=== PATIENT | male | born 1950 | race Caucasian/White ===

== ENCOUNTER → 2019-02-06 | Outpatient (CLI) | payer MEDICARE, BC ==
[~2019-02-06] MED LIST: ADVIL200 MG PO; ASPIRIN E.C. 8181 MG PO; CIPRO 500MG TA500 MG PO; NO HOME MEDICATIONS; TYLENOL 500MG500 MG PO
== END ==
LOC: COL.RAD 12:48
DX: S00.93XA Contusion of unspecified part of head, initial encounter (principal)

== ENCOUNTER 2021-07-03 23:31 | Emergency (ER) | payer MEDICARE, BC ==
[~2021-07-03] VITALS: Ht 193 cm; Wt 109.5 kg
[2021-07-04 00:57] LABS: BASO # 0.1 (0.0-0.2); EOS # 0.3 (0.0-0.7); EOS % 4.6 % (0-4.0); GRAN # 3.7 (1.4-6.5); GRAN % 60.9 % (42.2-75.2); HEMATOCRIT 45.6 % (42.0-52.0); HEMOGLOBIN 15.5 g/dl (13.5-18.0); LYMPH # 1.4 (1.2-3.4); LYMPH % 22.5 % (20.0-51.0); MEAN CELL VOLUME 93 fl (80.0-100.0); MEAN CORPUSCULAR HEMOGLOBIN 32 pg (27.0-31.0); MEAN CORPUSCULAR HGB CONC 34 g/dl (33.0-37.0); MEAN PLATELET VOLUME 11.9 fl (7.4-10.4); MONO # 0.6 (0.1-0.6); MONO % 10.5 % (1.7-9.3); PLATELET COUNT 207 K/mm3 (130-400); RED BLOOD COUNT 4.89 M/mm3 (4.20-5.60); REDCELL DISTRIBUTION WIDTH-CV 12.7 % (11.5-14.5)
[2021-07-04 01:17] LABS: ALBUMIN 3.6 gm/dL (3.4-4.8); BILIRUBIN,TOTAL 0.5 mg/dL (0.2-1.2); CALCIUM 8.6 mg/dL (8.4-10.2); CREATININE, serum 0.93 mg/dL (0.72-1.25); POTASSIUM 4.8 mmol/L (3.5-4.5); TOTAL PROTEIN 7.4 gm/dL (6.2-8.1)
[2021-07-04 01:22] LABS: TROPONIN-I 0.015 ng/mL (0.00-0.033)
[2021-07-04 04:00] VITALS: BP 122/95; PULSE 64; TEMP 97.7
== END 2021-07-04 04:07 | disposition home or self-care (01) ==
LOC: COL.ER 23:31
PROVIDERS: Student in an Organized Health Care Education/Training Program
DX: R07.89 Other chest pain (principal); Z79.82 Long term (current) use of aspirin